=== PATIENT | female | born 1975 | race Caucasian/White ===

== ENCOUNTER 2020-05-28 09:45 | Emergency (ER) | payer OTHER ==
[~2020-05-28] VITALS: Ht 157.5 cm; Wt 74.8 kg
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
[2020-05-28] MEDS ORDERED: KETOROLAC TROMETHAMINE 60 MG/2 ML VIAL IM ONE (10:45)
[2020-05-28] MEDS ORDERED: HYDROCODONE/APAP 7.5MG-325MG 1 EA TAB PO PRN (10:45)
[2020-05-28 11:11] LABS: BASOPHILS # (AUTO) 0.1 (0.0-0.1); BASOPHILS % 0.4 % (0.0-1.0); EOSINOPHILS # (AUTO) 0.1 (0.0-0.4); EOSINOPHILS % 0.3 % (0.0-6.0); HEMATOCRIT 44.6 % (34.2-44.1); HEMOGLOBIN 14.7 g/dL (12.0-16.0); LYMPHOCYTES # (AUTO) 2.8 (1.0-3.2); LYMPHOCYTES % 14.8 % (18.0-39.1); MEAN CORPUSCULAR HEMOGLOBIN 29.6 pg (28-32); MEAN CORPUSCULAR VOLUME 89.9 fL (81-99); MONOCYTES # (AUTO) 0.8 (0.2-0.8); MONOCYTES % 4.4 % (4.4-11.3); NEUTROPHILS # (AUTO) 14.9 (2.1-6.9); NEUTROPHILS % 79.3 % (38.7-80.0); PLATELET COUNT 246 x10e3/uL (140-360); RED BLOOD COUNT 4.96 x10e6/uL (3.6-5.1); RED CELL DISTRIBUTION WIDTH 13.3 % (11.7-14.4)
[2020-05-28 11:30] LABS: ALANINE AMINOTRANSFERASE 29 IU/L (0-55); ALBUMIN 4.3 g/dL (3.5-5.0); ALBUMIN/GLOBULIN RATIO 1.2 (0.8-2.0); ALKALINE PHOSPHATASE 101 IU/L (40-150); ANION GAP 14.6 mmol/L (8-16); BLOOD UREA NITROGEN 11 mg/dL (7-26); BUN/CREATININE RATIO 13 (6-25); CALCIUM 9.6 mg/dL (8.4-10.2); CARBON DIOXIDE 21 mmol/L (22-29); CHLORIDE 107 mmol/L (98-107); CREATINE KINASE 205 IU/L (29-168); CREATININE, SERUM 0.85 mg/dL (0.57-1.11); EST GLOMERULAR FILTRATION RATE > 60 ML/MIN (60-); GLUCOSE 118 mg/dL (74-118); POTASSIUM 3.6 mmol/L (3.5-5.1); SODIUM 139 mmol/L (136-145)
--- NOTE | 2020-05-28 11:34 | Diagnostic Imaging Report ---
Exam: Left knee 4 views History: Knee pain Comparison: None. Findings: No fracture or malalignment. Joint spaces preserved. Quadriceps enthesophyte. Impression: No acute osseous abnormality Signed by: Dr. Isaak Ferreira M.D. on 05/28/2020 11:30 AM
--- NOTE | 2020-05-28 11:34 | Diagnostic Imaging Report ---
Exam: Forearm 2 views History: Pain Comparison: None. Findings: No fracture or malalignment. Joint spaces preserved. No abnormal soft tissue calcification or soft tissue defect. Impression: No acute osseous abnormality Signed by: Dr. Isaak Ferreira M.D. on 05/28/2020 11:31 AM
--- NOTE | 2020-05-28 11:36 | Diagnostic Imaging Report ---
Examination: Single AP view of the chest. COMPARISON: None. INDICATION: Pain DISCUSSION: Lines/tubes: None. Lungs: The lungs are well inflated and clear. No pneumonia or pulmonary edema. Pleura: No pleural effusion or pneumothorax. Heart and mediastinum: The heart and the mediastinum are unremarkable. Bones and soft tissues: No acute bony abnormalities. IMPRESSION: 1. No acute cardiopulmonary abnormalities. Signed by: Dr. Isaak Ferreira M.D. on 05/28/2020 11:33 AM
[2020-05-28] MEDS ORDERED: ULTRAM50 MG PO (12:19)
[2020-05-28] MEDS ORDERED: LIDOPATCH1 EACH TOP (12:19)
[2020-05-28] MEDS ORDERED: ROBAXIN-750750 MG PO (12:19)
[2020-05-28 12:40] VITALS: BP 120/79
[2020-05-28] MEDS ORDERED: LIDOCAINE 4% PATCH TP SCH (13:00)
== END 2020-05-28 12:55 | disposition home or self-care (01) ==
LOC: ER 10:15
DX: S20.219A Contusion of unspecified front wall of thorax, initial encounter (principal); S80.02XA Contusion of left knee, initial encounter; M79.632 Pain in left forearm; V43.52XA Car driver injured in collision with other type car in traffic accident, initial encounter; Y92.488 Other paved roadways as the place of occurrence of the external cause; I10 Essential (primary) hypertension; E78.5 Hyperlipidemia, unspecified; F41.9 Anxiety disorder, unspecified
CPT/HCPCS: 36415; 71045; 73090; 73562; 80053; 82550; 82553; 84484; 85025; 99284; J1885

== ENCOUNTER 2020-07-14 08:52 | Emergency (ER) | payer OTHER ==
[~2020-07-14] VITALS: Ht 157.5 cm; Wt 74.8 kg
[~2020-07-14 08:52] MED LIST: LIDOPATCH1 EACH TOP; ROBAXIN-750750 MG PO; ULTRAM50 MG PO
[2020-07-14] MEDS ORDERED: SODIUM CHLORIDE 0.9% 1000ML 1,000 ML IV STA (08:54)
[2020-07-14 09:48] LABS: BASOPHILS # (AUTO) 0.1 (0.0-0.1); BASOPHILS % 0.4 % (0.0-1.0); EOSINOPHILS # (AUTO) 0.1 (0.0-0.4); EOSINOPHILS % 1.1 % (0.0-6.0); HEMATOCRIT 46.2 % (34.2-44.1); HEMOGLOBIN 15.1 g/dL (12.0-16.0); LYMPHOCYTES # (AUTO) 2.7 (1.0-3.2); LYMPHOCYTES % 20.7 % (18.0-39.1); MEAN CORPUSCULAR HEMOGLOBIN 29.8 pg (28-32); MEAN CORPUSCULAR HGB CONC 32.7 g/dL (31-35); MEAN CORPUSCULAR VOLUME 91.3 fL (81-99); MONOCYTES # (AUTO) 0.6 (0.2-0.8); MONOCYTES % 4.5 % (4.4-11.3); NEUTROPHILS # (AUTO) 9.4 (2.1-6.9); NEUTROPHILS % 72.8 % (38.7-80.0); PLATELET COUNT 245 x10e3/uL (140-360); RED BLOOD COUNT 5.06 x10e6/uL (3.6-5.1); RED CELL DISTRIBUTION WIDTH 13.2 % (11.7-14.4)
--- NOTE | 2020-07-14 09:56 | Emergency Department Note ---
History of Present Illnes History of Present Illness Chief Complaint: Abdominal Complaints History of Present Illness This is a 44 year old female PATIENT IN FROM HOME WITH COMPLAINTS OF LOWER ABDOMINAL PAIN, MORE ON THE RIGHT SINCE APPROX 0400 TODAY; DENIES ANY BURNING OR PAIN WITH URINATION, BUT STATES AFTER SHE URINATED THIS MORNING SHE STILL FELT LIKE SHE NEEDED TO GO. PATIENT ALERT AND ORIENTED, RESP EVEN AND NON LABORED, APPEARS IN NO DISTRESS, RATES PAIN 2/10. Historian: Patient Arrival Mode: Car Heating Equipment Installer Required: No Onset (how long ago): hour(s) Location: ABDOMEN Quality: PAIN Radiation: Reports non-radiation Severity: moderate Onset quality: gradual Timing of current episode: constant Progression: unchanged Chronicity: new Context: Denies recent illness Relieving factors: none Exacerbating factors: none Associated symptoms: Reports denies other symptoms Treatments prior to arrival: none Past Medical/Family History Physician Review I have reviewed the patient's past medical and family history. Any updates have been documented here. Past Medical History Recent Fever: No Clinical Suspicion of Infectio: No New/Unexplained Change in Ment: No Past Medical History: Hypertension, Anxiety, Hyperlipedemia Other Medical History: IRREGULAR HR Other Surgery: RHINOPLASTY CARPAL TUNNEL LT WRIST Social History Smoking Cessation: Never Smoker Counseling Performed: No Alcohol Use: None Any Illegal Drug Use: No TB Exposure/Symptoms: No Physically hurt or threatened: No Family History Family history of heart diseas: No Other Any Pre-Existing Lines (PICC,: No Review of Systems Review of Systems Constitutional: Reports no symptoms EENTM: Reports no symptoms Cardiovascular: Reports no symptoms Respiratory: Reports no symptoms Gastrointestinal: Reports as per HPI, Reports abdominal pain Genitourinary: Reports no symptoms Musculoskeletal: Reports no symptoms Integumentary: Reports no symptoms Neurological: Reports no symptoms Psychological: Reports no symptoms Endocrine: Reports no symptoms Hematological/Lymphatic: Reports no symptoms Physical Exam Related Data Allergies: Coded Allergies: famotidine (Verified Allergy, Intermediate, HIVES, 07/14/20) Triage Vital Signs Vital Signs Date Time Temp Pulse Resp B/P (MAP) Pulse Ox O2 Delivery O2 Flow Rate FiO2 07/14/20 08:56 97.9 109 18 135/113 100 Room Air Vital signs reviewed: Yes Physical Exam CONSTITUTIONAL Constitutional: Present well-developed, Present well-nourished HENT HENT: Present normocephalic, Present atraumatic, Present oropharynx clear/moist, Present nose normal HENT L/R: Present left ext ear normal, Present right ext ear normal EYES Eyes: Reports PERRL, Reports conjunctivae normal NECK Neck: Present ROM normal PULMONARY Pulmonary: Present effort normal, Present breath sounds normal CARDIOVASCULAR Cardiovascular: Present regular rhythm, Present heart sounds normal, Present capillary refill normal, Present normal rate GASTROINTESTINAL Abdominal: Present soft, Present bowel sounds normal, Present tender (MILD SUPRAPUBIC TTP AND SLIGHTLY WORSE IN RLQ, NO R/G); Absent guarding, Absent mass, Absent rebound GENITOURINARY Genitourinary: Present exam deferred SKIN Skin: Present warm, Present dry MUSCULOSKELETAL Musculoskeletal: Present ROM normal NEUROLOGICAL Neurological: Present alert, Present oriented x 3, Present no gross motor or sensory deficits PSYCHOLOGICAL Psychological: Present mood/affect normal, Present judgement normal Results Laboratory Result Diagram: 07/14/20 0900 Laboratory Laboratory Tests Test 07/14/20 09:00 White Blood Count 12.93 x10e3/uL (4.8-10.8) Red Blood Count 5.06 x10e6/uL (3.6-5.1) Hemoglobin 15.1 g/dL (12.0-16.0) Hematocrit 46.2 % (34.2-44.1) Mean Corpuscular Volume 91.3 fL (81-99) Mean Corpuscular Hemoglobin 29.8 pg (28-32) Mean Corpuscular Hemoglobin Concent 32.7 g/dL (31-35) Red Cell Distribution Width 13.2 % (11.7-14.4) Platelet Count 245 x10e3/uL (140-360) Neutrophils (%) (Auto) 72.8 % (38.7-80.0) Lymphocytes (%) (Auto) 20.7 % (18.0-39.1) Monocytes (%) (Auto) 4.5 % (4.4-11.3) Eosinophils (%) (Auto) 1.1 % (0.0-6.0) Basophils (%) (Auto) 0.4 % (0.0-1.0) Neutrophils # (Auto) 9.4 (2.1-6.9) Lymphocytes # (Auto) 2.7 (1.0-3.2) Monocytes # (Auto) 0.6 (0.2-0.8) Eosinophils # (Auto) 0.1 (0.0-0.4) Basophils # (Auto) 0.1 (0.0-0.1) Absolute Immature Granulocyte (auto 0.07 x10e3/uL (0-0.1) Lab results reviewed: Yes Imaging Imaging results reviewed: Yes Impressions CT of the abdomen and pelvis with contrast TECHNIQUE: CT of the abdomen and pelvis WITH intravenous contrast and WITHOUT oral contrast. Dose modulation, iterative reconstruction, and/or weight-based adjustment of the mA/kV was utilized to reduce the radiation dose to as low as reasonably achievable. IV CONTRAST: 100 mL of Isovue-370 ORAL CONTRAST: None RADIATION DOSE: Total DLP: 705 mGy*cm COMPLICATIONS: None INDICATION: ^RLQ ABD PAIN ^[id number] ^111. COMPARISON: None. FINDINGS: LOWER THORAX: Unremarkable. HEPATOBILIARY: No focal hepatic lesions. Gallbladder is unremarkable. No biliary ductal dilatation. SPLEEN: No splenomegaly. PANCREAS: No focal masses or ductal dilatation. ADRENALS: No adrenal nodules. 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 Probable right ureterocele is noted. Mild right upper pole hydronephrosis is noted. Left ureter is not dilated. Negative for left hydronephrosis. PELVIC ORGANS/BLADDER: Urinary bladder images mild wall thickening. There is a heterogeneous enhancing pelvic mass (axial image 67) measuring approximately 4.6 x 4.9 x 3.6 cm (TR by AP by CC). Within the midline lower abdomen and pelvis there is a large hypodense cystic lesion with internal simple fluid measuring approximately 14.4 x 11.3 x 17.0 cm (TR by AP by CC). There is a single thin horizontal septation. Trace wall thickening is noted at the posterior aspect (axial images 54 through 63). The cystic component appears to be contiguous with the enhancing mass in the pelvis. A separate right ovary or uterus are not well visualized. A separate left ovary is visualized. PERITONEUM/RETROPERITONEUM: No free air or fluid. LYMPH NODES: No lymphadenopathy. VESSELS: Unremarkable. GI TRACT: Bowel loops are not dilated. Stomach and portions of the colon are decompressed limiting evaluation. Normal appendix is noted. No surrounding inflammatory changes are identified. BONES AND SOFT TISSUES: No acute osseous abnormalities. Soft tissues are unremarkable. IMPRESSION: 1. Heterogeneous enhancing pelvic/right adnexal mass (measuring up to 4.9 cm) concerning for possible right adnexal malignancy with associated large cystic component within the midline inferior abdominal cavity and pelvis measuring up to 17 cm in greatest diameter. Findings are concerning for ovarian malignancy. The solid enhancing components in the pelvis are highly suspicious for a cystadenocarcinoma. Recommend gynecologic evaluation. 2. Duplicated right renal collecting system with probable upper pole mild hydronephrosis and ureterocele. Signed by: Corey Odonnell MD on 07/14/2020 11:58 AM Assessment & Plan Medical Decision Making MDM ABD PAIN, RLQ>SUPRAPUBIC - CHECK CBC, CHEM, PREG, CT ABD/PELVIS, UA/CX - R/O APPENDICITIS, UTI, OVARIAN CYST, KIDNEY STONE Reassessment Reassessment dc home, call Help Desk Administrator today (pt has Help Desk Administrator at [facility]) for F/U PHUONG, Tyl/Motrin, Tyl #3 for more severe pain, Zofran ODT, RTED prn Assessment & Plan Final Impression: (1) Ovarian mass, right Depart Disposition: HOME, SELF-CARE Last Vital Signs Date Time Temp Pulse Resp B/P (MAP) Pulse Ox O2 Delivery O2 Flow Rate FiO2 07/14/20 08:56 97.9 109 18 135/113 100 Room Air Home Meds Active Scripts Lidocaine/Menthol (LIDOPATCH) 1 Each Adh..patch, 1 PATCH TOP Q12HR, #12 PATCH Prov:ARJUN BERNSTEIN, DO 05/28/20 Tramadol Hcl (ULTRAM) 50 Mg Tablet, 50 MG PO Q6HR PRN for Mild Pain (1-3) or Fever>100.8, #14 TAB Prov:DARENRWAYNEICA, DO 05/28/20 Methocarbamol (ROBAXIN-750) 750 Mg Tablet, 750 MG PO Q8HR PRN for MUSCLE SPASMS, #14 Prov:SANDHIR AMBICA, DO 05/28/20 Medications in the ED Sodium Chloride 1,000 ml @ 0 mls/hr Q0M STAT IV Last administered on 07/14/20at 09:24; Admin Dose 1,000 MLS/HR; Start 07/14/20 at 08:54; Stop 07/14/20 at 09:02; Status DC YONI VILLEGAS MD Jul 14, 2020 09:55
[2020-07-14 10:08] LABS: CLARITY,URINE CLEAR (CLEAR); COLOR,URINE YELLOW (YELLOW)
[2020-07-14 10:09] LABS: BILIRUBIN,URINE NEGATIVE (NEGATIVE); EPITHELIAL CELLS,URINE RARE /LPF; KETONES,URINE NEGATIVE (NEGATIVE); LEUKOCYTE ESTERASE ,URINE NEGATIVE (NEGATIVE); MUCUS,URINE RARE (RARE); NITRITE,URINE NEGATIVE (NEGATIVE); PROTEIN,URINE DIPSTICK NEGATIVE (NEGATIVE); RBC,URINE 0-5 /HPF (0-5); URINE UROBILINOGEN 0.2 mg/dL (0.2 - 1); WBC,URINE (MAN) 0-5 /HPF (0-5)
[2020-07-14 10:10] LABS: PREGNANCY TEST, URINE NEGATIVE (NEGATIVE)
[2020-07-14 10:17] LABS: ALANINE AMINOTRANSFERASE 34 IU/L (0-55); ALBUMIN 4.3 g/dL (3.5-5.0); ALBUMIN/GLOBULIN RATIO 1.3 (0.8-2.0); ALKALINE PHOSPHATASE 98 IU/L (40-150); ANION GAP 13.9 mmol/L (8-16); BLOOD UREA NITROGEN 10 mg/dL (7-26); BUN/CREATININE RATIO 12 (6-25); CALCIUM 9.4 mg/dL (8.4-10.2); CARBON DIOXIDE 24 mmol/L (22-29); CHLORIDE 109 mmol/L (98-107); CREATININE, SERUM 0.85 mg/dL (0.57-1.11); EST GLOMERULAR FILTRATION RATE > 60 ML/MIN (60-); GLUCOSE 114 mg/dL (74-118); POTASSIUM 3.9 mmol/L (3.5-5.1); SODIUM 143 mmol/L (136-145)
[2020-07-14 10:39] LABS: INR 0.9; PROTHROMBIN TIME 12.6 seconds (11.9-14.5)
[2020-07-14 10:40] LABS: PARTIAL THROMBOPLASTIN TIME 27.6 seconds (23.8-35.5)
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
[2020-07-14] MEDS ORDERED: SODIUM CHLORIDE 0.9% 50ML 50 ML ONE (11:19)
[2020-07-14] MEDS ORDERED: IOPAMIDOL 370 MG/ML 200 ML INFUS..BTL INJ ONE (11:19)
--- NOTE | 2020-07-14 12:01 | Diagnostic Imaging Report ---
CT of the abdomen and pelvis with contrast TECHNIQUE: CT of the abdomen and pelvis WITH intravenous contrast and WITHOUT oral contrast. Dose modulation, iterative reconstruction, and/or weight-based adjustment of the mA/kV was utilized to reduce the radiation dose to as low as reasonably achievable. IV CONTRAST: 100 mL of Isovue-370 ORAL CONTRAST: None RADIATION DOSE: Total DLP: 705 mGy*cm COMPLICATIONS: None INDICATION: ^RLQ ABD PAIN ^[id number] ^1115. COMPARISON: None. FINDINGS: LOWER THORAX: Unremarkable. HEPATOBILIARY: No focal hepatic lesions. Gallbladder is unremarkable. No biliary ductal dilatation. SPLEEN: No splenomegaly. PANCREAS: No focal masses or ductal dilatation. ADRENALS: No adrenal nodules. 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 Probable right ureterocele is noted. Mild right upper pole hydronephrosis is noted. Left ureter is not dilated. Negative for left hydronephrosis. PELVIC ORGANS/BLADDER: Urinary bladder images mild wall thickening. There is a heterogeneous enhancing pelvic mass (axial image 67) measuring approximately 4.6 x 4.9 x 3.6 cm (TR by AP by CC). Within the midline lower abdomen and pelvis there is a large hypodense cystic lesion with internal simple fluid measuring approximately 14.4 x 11.3 x 17.0 cm (TR by AP by CC). There is a single thin horizontal septation. Trace wall thickening is noted at the posterior aspect (axial images 54 through 63). The cystic component appears to be contiguous with the enhancing mass in the pelvis. A separate right ovary or uterus are not well visualized. A separate left ovary is visualized. PERITONEUM/RETROPERITONEUM: No free air or fluid. LYMPH NODES: No lymphadenopathy. VESSELS: Unremarkable. GI TRACT: Bowel loops are not dilated. Stomach and portions of the colon are decompressed limiting evaluation. Normal appendix is noted. No surrounding inflammatory changes are identified. BONES AND SOFT TISSUES: No acute osseous abnormalities. Soft tissues are unremarkable. IMPRESSION: 1. Heterogeneous enhancing pelvic/right adnexal mass (measuring up to 4.9 cm) concerning for possible right adnexal malignancy with associated large cystic component within the midline inferior abdominal cavity and pelvis measuring up to 17 cm in greatest diameter. Findings are concerning for ovarian malignancy. The solid enhancing components in the pelvis are highly suspicious for a cystadenocarcinoma. Recommend gynecologic evaluation. 2. Duplicated right renal collecting system with probable upper pole mild hydronephrosis and ureterocele. Signed by: Corey Odonnell MD on 07/14/2020 11:58 AM
[2020-07-14 12:48] VITALS: BP 139/93
== END 2020-07-14 13:00 | disposition home or self-care (01) ==
LOC: ER 09:30
DX: R10.31 Right lower quadrant pain (principal); R19.09 Other intra-abdominal and pelvic swelling, mass and lump; I10 Essential (primary) hypertension; E78.5 Hyperlipidemia, unspecified; F41.9 Anxiety disorder, unspecified
CPT/HCPCS: 36415; 74177; 80053; 81001; 81025; 85025; 85610; 85730; 87086; 99284; J7030; Q9967

== ENCOUNTER 2020-08-25 05:24 | Observation (INO) | payer OTHER ==
[2020-08-21 14:50] LABS: BASOPHILS # (AUTO) 0.1 (0.0-0.1); BASOPHILS % 0.5 % (0.0-1.0); EOSINOPHILS # (AUTO) 0.1 (0.0-0.4); EOSINOPHILS % 0.5 % (0.0-6.0); HEMATOCRIT 44.1 % (34.2-44.1); HEMOGLOBIN 14.4 g/dL (12.0-16.0); LYMPHOCYTES # (AUTO) 2.9 (1.0-3.2); LYMPHOCYTES % 20.6 % (18.0-39.1); MEAN CORPUSCULAR HEMOGLOBIN 29.6 pg (28-32); MEAN CORPUSCULAR HGB CONC 32.7 g/dL (31-35); MEAN CORPUSCULAR VOLUME 90.7 fL (81-99); MONOCYTES # (AUTO) 0.6 (0.2-0.8); MONOCYTES % 4.2 % (4.4-11.3); NEUTROPHILS # (AUTO) 10.4 (2.1-6.9); NEUTROPHILS % 73.8 % (38.7-80.0); PLATELET COUNT 247 x10e3/uL (140-360); RED BLOOD COUNT 4.86 x10e6/uL (3.6-5.1); RED CELL DISTRIBUTION WIDTH 13.1 % (11.7-14.4)
[2020-08-21 15:11] LABS: ALBUMIN 4.2 g/dL (3.5-5.0); ALBUMIN/GLOBULIN RATIO 1.2 (0.8-2.0); ANION GAP 14.2 mmol/L (8-16); CALCIUM 9.6 mg/dL (8.4-10.2); CREATININE, SERUM 1.13 mg/dL (0.57-1.11); POTASSIUM 4.2 mmol/L (3.5-5.1)
[~2020-08-25] VITALS: Ht 157.5 cm; Wt 74.8 kg
[~2020-08-25 05:24] MED LIST changes: +ATORVASTATIN CA10 MG PO; +BUSPIRONE HCL5 MG PO; +CALTRATE 600 W1 EACH PO; +FELODIPINE ER5 MG PO
[2020-08-25] MEDS ORDERED: CEFAZOLIN SOD 1 GM/NS 50ML 100 ML IV ONE (06:16)
[2020-08-25] MEDS ORDERED: BUPIVACAINE 0.25% 30ML SDV ONE ×2 (07:30→10:07)
[2020-08-25] MEDS ORDERED: LIDOCAINE 1% W/EPINEPHRINE 20 ML VIAL ONE (07:30)
[2020-08-25] MEDS ORDERED: IOPAMIDOL 300MG/ML 50ML INFUS..BTL IV ONE (08:08)
[2020-08-25] MEDS ORDERED: INDIGOTINDISULFONATE SODIUM 8 MG/ML AMP IJ ONE (08:24)
[2020-08-25] MEDS ORDERED: HYDROMORPHONE 2MG/ML 2 MG/ML ML ONE ×2 (09:41→10:56)
[2020-08-25] MEDS ORDERED: SUGAMMADEX SODIUM 200 MG/2 ML VIAL IV ONE (10:01)
[2020-08-25] MEDS ORDERED: BUPIVACAINE LIPOSOME/PF 266 MG/20 ML IJ ONE (10:07)
[2020-08-25] MEDS ORDERED: FENTANYL CITRATE/PF 100MCG/2 ML INJ ONE ×2 (10:45→11:59)
[2020-08-25] MEDS ORDERED: NALOXONE HCL INJ 0.4 MG/ML AMP IV PRN (10:45)
[2020-08-25] MEDS ORDERED: ONDANSETRON HCL INJ 2MG/ML 2ML 2 MG/ML VIAL IV PRN (10:45)
[2020-08-25] MEDS ORDERED: HYDROMORPHONE 0.2MG/ML-SOD CHL 30ML PCA SYRINGE IV PRN ×2 (10:45→11:15)
[2020-08-25] MEDS: METOCLOPRAMIDE HCL 10 MG/2ML VIAL IV SCH ×3 (11:02→23:30)
[2020-08-25] MEDS ORDERED: METOCLOPRAMIDE HCL 10 MG/2ML VIAL ONE (11:08)
[2020-08-25] MEDS ORDERED: ONDANSETRON HCL INJ 2MG/ML 2ML 2 MG/ML VIAL ONE ×2 (11:08→17:41)
[2020-08-25] MEDS ORDERED: PROMETHAZINE HCL (IM) 25 MG/ML VIAL IM ONE (11:16)
[2020-08-25] MEDS ORDERED: MIDAZOLAM HCL 2 MG/2 ML VIAL ONE (11:59)
[2020-08-25] MEDS: ACETAMINOPHEN 325 MG TAB PO SCH ×3 (12:31→23:30)
[2020-08-25] MEDS ORDERED: ACETAMINOPHEN 325 MG TAB ONE (12:38)
[2020-08-25 14:52] VITALS: BP 127/99
[2020-08-25 14:53] VITALS: BP 127/99
[2020-08-25] MEDS: IBUPROFEN 600 MG TAB PO SCH ×2 (15:10→21:32)
[2020-08-25] MEDS: GABAPENTIN 300 MG CAP PO SCH ×2 (15:10→21:32)
[2020-08-25] MEDS: DEXTROSE 5%/LACTATED RINGERS 1,000 ML IV SCH ×3 (15:10→23:11)
[2020-08-25 15:47] VITALS: BP 127/99
[2020-08-25] MEDS: PANTOPRAZOLE 40 MG 10ML VIAL IV SCH (17:00)
[2020-08-25] MEDS: SENNA-S TABLET PO SCH (17:22)
[2020-08-25] MEDS ORDERED: LIDOCAINE HCL 2% LOCAL INJ 5 ML SDV VIAL INJ ONE (17:41)
[2020-08-25] MEDS ORDERED: NEOSTIGMINE 1 MG/ML 10ML VIAL ONE (17:41)
[2020-08-25] MEDS ORDERED: SEVOFLURANE INHAL SOLN 250 ML PEN BTL ONE (17:41)
[2020-08-25] MEDS ORDERED: PROPOFOL IV EMULSION 10 MG/ML 20 ML VIAL ONE (17:41)
[2020-08-25] MEDS ORDERED: DEXAMETHASONE SOD PHOS INJ 4 MG/ML VIAL ONE (17:41)
[2020-08-25] MEDS ORDERED: GLYCOPYRROLATE INJ 0.2 MG/ML VIAL ONE (17:41)
[2020-08-25] MEDS ORDERED: ROCURONIUM BROMIDE 10 MG/ML 5ML VIAL IV ONE (17:41)
[2020-08-25 20:00] VITALS: BP 109/85
[2020-08-25 20:23] VITALS: BP 109/85
[2020-08-26 00:09] VITALS: BP 100/53
[2020-08-26 04:00] VITALS: BP 101/68
[2020-08-26] MEDS: ACETAMINOPHEN 325 MG TAB PO SCH ×2 (05:39→12:38)
[2020-08-26] MEDS: METOCLOPRAMIDE HCL 10 MG/2ML VIAL IV SCH ×2 (05:39→12:38)
[2020-08-26 06:09] LABS: BASOPHILS # (AUTO) 0.1 (0.0-0.1); BASOPHILS % 0.4 % (0.0-1.0); EOSINOPHILS % 0.2 % (0.0-6.0); HEMATOCRIT 35.3 % (34.2-44.1); HEMOGLOBIN 11.3 g/dL (12.0-16.0); LYMPHOCYTES # (AUTO) 2.6 (1.0-3.2); MEAN CORPUSCULAR HEMOGLOBIN 29.6 pg (28-32); MEAN CORPUSCULAR VOLUME 92.4 fL (81-99); MONOCYTES # (AUTO) 1.1 (0.2-0.8); MONOCYTES % 6.2 % (4.4-11.3); NEUTROPHILS # (AUTO) 14.4 (2.1-6.9); NEUTROPHILS % 78.7 % (38.7-80.0); PLATELET COUNT 198 x10e3/uL (140-360); RED BLOOD COUNT 3.82 x10e6/uL (3.6-5.1); RED CELL DISTRIBUTION WIDTH 13.4 % (11.7-14.4)
[2020-08-26 06:27] LABS: ANION GAP 11.6 mmol/L (8-16); BLOOD UREA NITROGEN 9 mg/dL (7-26); BUN/CREATININE RATIO 12 (6-25); CALCIUM 8.1 mg/dL (8.4-10.2); CARBON DIOXIDE 24 mmol/L (22-29); CHLORIDE 108 mmol/L (98-107); CREATININE, SERUM 0.78 mg/dL (0.57-1.11); EST GLOMERULAR FILTRATION RATE > 60 ML/MIN (60-); GLUCOSE 177 mg/dL (74-118); POTASSIUM 3.6 mmol/L (3.5-5.1); SODIUM 140 mmol/L (136-145)
[2020-08-26 07:20] VITALS: BP 107/61
[2020-08-26 07:45] VITALS: BP 107/61
[2020-08-26] MEDS ORDERED: OXYCODONE HCL IR 5 MG TAB PO PRN (09:00)
[2020-08-26] MEDS ORDERED: HYDROMORPHONE 1MG/1ML INJ IV PRN (09:00)
[2020-08-26] MEDS ORDERED: ONDANSETRON4 MG/2 M1 IV (09:04)
[2020-08-26] MEDS ORDERED: Ibuprofen PO (09:04)
[2020-08-26] MEDS ORDERED: ACETAMINOPHEN325 M1 PO (09:04)
[2020-08-26] MEDS: PANTOPRAZOLE 40 MG 10ML VIAL IV SCH (09:43)
[2020-08-26] MEDS: IBUPROFEN 600 MG TAB PO SCH (09:44)
[2020-08-26] MEDS: GABAPENTIN 300 MG CAP PO SCH (09:44)
[2020-08-26] MEDS: SENNA-S TABLET PO SCH (09:51)
[2020-08-26 11:10] VITALS: BP 116/74
[2020-08-26] MEDS ORDERED: VESICARE5 MG PO (12:51)
== END 2020-08-26 13:30 | disposition home or self-care (01) ==
LOC: OR 05:24 → PACU V 11:56 → MED/SURG 14:19
PROVIDERS: ADMIT Obstetrics & Gynecology; ATTEND Obstetrics & Gynecology
DX: D27.0 Benign neoplasm of right ovary (principal); N28.89 Other specified disorders of kidney and ureter; D25.9 Leiomyoma of uterus, unspecified; N13.30 Unspecified hydronephrosis; Z01.810 Encounter for preprocedural cardiovascular examination; Z01.812 Encounter for preprocedural laboratory examination; Z20.828 Contact with and (suspected) exposure to other viral communicable diseases; Z88.8 Allergy status to other drugs, medicaments and biological substances; I10 Essential (primary) hypertension
CPT/HCPCS: 36415 ×2; 52290; 52332; 58140; 58720; 74420; 80048; 80053; 84702; 85025 ×2; 86850; 86900; 88112; 88305 ×2; 88307; 88329; 93005; C1758; C2617; C9113 ×2; C9290; G0378 ×2; J0690; J1100; J1170; J2001; J2250; J2405; J2550; J2704; J2710; J2765 ×2; J3010; J7121; Q9967; U0002

== ENCOUNTER → 2020-09-30 | Day surgery (SDC) | payer OTHER ==
[~2020-09-30] MED LIST changes: +ACETAMINOPHEN325 M1 PO; +CEFAZOLIN SOD 1 GM/NS 50ML 50 ML IV ONE; +DEXAMETHASONE SOD PHOS INJ 4 MG/ML VIAL ONE; +EX-LAX15 M1 PO; +FENTANYL CITRATE/PF 100MCG/2 ML INJ ONE; +IOPAMIDOL 300MG/ML 50ML INFUS..BTL IV ONE; +Ibuprofen PO; +LIDOCAINE HCL 2% JELLY 5 ML TUBE ONE; +LIDOCAINE HCL 2% LOCAL INJ 5 ML SDV VIAL INJ ONE; +MIDAZOLAM HCL 2 MG/2 ML VIAL ONE; +MIRALAX17 GM PO; +ONDANSETRON HCL INJ 2MG/ML 2ML 2 MG/ML VIAL ONE; +ONDANSETRON4 MG/2 M1 IV; +PROPOFOL IV EMULSION 10 MG/ML 20 ML VIAL ONE; +SEVOFLURANE INHAL SOLN 250 ML PEN BTL ONE; +VESICARE5 MG PO
[2020-09-30 09:53] VITALS: BP 137/85
== END | disposition home or self-care (01) ==
LOC: OR 05:43
PROVIDERS: ATTEND Urology
DX: Q62.5 Duplication of ureter (principal); N13.30 Unspecified hydronephrosis; N13.4 Hydroureter; I49.3 Ventricular premature depolarization; F41.9 Anxiety disorder, unspecified; Z46.6 Encounter for fitting and adjustment of urinary device; Z01.812 Encounter for preprocedural laboratory examination; Z20.828 Contact with and (suspected) exposure to other viral communicable diseases; Z88.8 Allergy status to other drugs, medicaments and biological substances
CPT/HCPCS: 52344; 74420; 81025; C1758; J0690; J1100; J2001 ×2; J2405; J2704; Q9967; U0002

== ENCOUNTER → 2021-01-25 | Outpatient (CLI) | payer OTHER ==
[~2021-01-25] MED LIST changes: -CEFAZOLIN SOD 1 GM/NS 50ML 50 ML IV ONE; -DEXAMETHASONE SOD PHOS INJ 4 MG/ML VIAL ONE; -FENTANYL CITRATE/PF 100MCG/2 ML INJ ONE; -IOPAMIDOL 300MG/ML 50ML INFUS..BTL IV ONE; -LIDOCAINE HCL 2% JELLY 5 ML TUBE ONE; -LIDOCAINE HCL 2% LOCAL INJ 5 ML SDV VIAL INJ ONE; -MIDAZOLAM HCL 2 MG/2 ML VIAL ONE; -ONDANSETRON HCL INJ 2MG/ML 2ML 2 MG/ML VIAL ONE; -PROPOFOL IV EMULSION 10 MG/ML 20 ML VIAL ONE; -SEVOFLURANE INHAL SOLN 250 ML PEN BTL ONE
== END ==
LOC: US 16:28
PROVIDERS: ATTEND Urology
DX: N13.30 Unspecified hydronephrosis (principal)
CPT/HCPCS: 76770